=== PATIENT | male | born 1970 | race Caucasian/White ===

== ENCOUNTER 2017-07-15 00:37 | Emergency (ER) | payer BC ==
[~2017-07-15] VITALS: Ht 188 cm; Wt 102.0 kg
[2017-07-15] MEDS ORDERED: VAL5T PO (02:38)
[2017-07-15] MEDS ORDERED: METH500T PO (02:38)
[2017-07-15 02:42] VITALS: BP 162/108
== END 2017-07-15 02:47 | disposition home or self-care (01) ==
LOC: ER 00:39
DX: M79.1 Myalgia (principal); Z79.899 Other long term (current) drug therapy
CPT/HCPCS: 99283